=== PATIENT | male | born 1940 | race Caucasian/White ===

== ENCOUNTER 2016-07-20 11:53 | Outpatient (CLI) | END 2016-07-20 11:54 | disposition home or self-care (01) ==

== ENCOUNTER 2016-09-28 07:52 | Outpatient (CLI) | payer MEDICARE, OTHER | END 2016-09-28 07:53 | disposition home or self-care (01) | DX: I25.5 Ischemic cardiomyopathy (principal) ==

== ENCOUNTER 2016-10-31 16:00 | Emergency (ER) | payer MEDICARE, OTHER | END 2016-10-31 18:17 | disposition home or self-care (01) | DX: S02.2XXA Fracture of nasal bones, initial encounter for closed fracture (principal); S01.21XA Laceration without foreign body of nose, initial encounter; S00.83XA Contusion of other part of head, initial encounter; S00.81XA Abrasion of other part of head, initial encounter; W01.0XXA Fall on same level from slipping, tripping and stumbling without subsequent striking against object, initial encounter; I10 Essential (primary) hypertension; I25.2 Old myocardial infarction; Z79.01 Long term (current) use of anticoagulants; N40.0 Benign prostatic hyperplasia without lower urinary tract symptoms; E78.00 Pure hypercholesterolemia, unspecified; I25.10 Atherosclerotic heart disease of native coronary artery without angina pectoris; E11.9 Type 2 diabetes mellitus without complications ==

== ENCOUNTER 2016-11-02 14:37 | Outpatient (CLI) | payer MEDICARE, OTHER | END 2016-11-02 14:38 | disposition home or self-care (01) | DX: D64.9 Anemia, unspecified (principal); E11.51 Type 2 diabetes mellitus with diabetic peripheral angiopathy without gangrene; Z79.899 Other long term (current) drug therapy; E78.00 Pure hypercholesterolemia, unspecified ==

== ENCOUNTER 2016-12-04 15:43 | Outpatient (CLI) | payer MEDICARE, OTHER | END 2016-12-04 15:44 | disposition critical access hospital (66) | LOC: EMS 15:43 | PROVIDERS: ATTEND Surgery | DX: S01.81XA Laceration without foreign body of other part of head, initial encounter (principal); R41.0 Disorientation, unspecified; W18.30XA Fall on same level, unspecified, initial encounter; Y92.009 Unspecified place in unspecified non-institutional (private) residence as the place of occurrence of the external cause | CPT/HCPCS: A0425; A0429 ==

== ENCOUNTER 2016-12-04 15:54 | Emergency (ER) | payer MEDICARE, OTHER ==
[2016-12-04] MEDS ORDERED: TETANUS/DIPHTHERIA/PERTUSSIS 0.5 ML SYRINGE IM ONE ×2 (16:09→16:12)
== END 2016-12-04 17:44 | disposition home or self-care (01) ==
DX: S06.0X0A Concussion without loss of consciousness, initial encounter (principal); S00.81XA Abrasion of other part of head, initial encounter; W01.10XA Fall on same level from slipping, tripping and stumbling with subsequent striking against unspecified object, initial encounter; Y93.01 Activity, walking, marching and hiking; Y92.009 Unspecified place in unspecified non-institutional (private) residence as the place of occurrence of the external cause; Z23 Encounter for immunization; I48.91 Unspecified atrial fibrillation; Z79.01 Long term (current) use of anticoagulants; Z79.82 Long term (current) use of aspirin; I10 Essential (primary) hypertension; E11.9 Type 2 diabetes mellitus without complications; Z79.84 Long term (current) use of oral hypoglycemic drugs

== ENCOUNTER 2016-12-06 13:57 | Outpatient (CLI) | payer MEDICARE, OTHER ==
[2016-12-06 18:58] LABS: BASOPHILS # (AUTO) 0.1 10^3/uL (0.0-0.1); BASOPHILS % (AUTO) 0.9 %; EOSINOPHILS # (AUTO) 0.3 10^3/uL (0.0-0.7); EOSINOPHILS % (AUTO) 3.3 %; HCT - HEMATOCRIT 34.6 % (42.0-52.0); HGB - HEMOGLOBIN 10.8 g/dL (14.0-18.0); LYMPHOCYTES # (AUTO) 1.2 10^3/uL (1.5-3.5); LYMPHOCYTES % (AUTO) 12.1 %; MEAN CORPUSCULAR HEMOGLOBIN 27.9 pg (27.0-31.0); MEAN CORPUSCULAR HGB CONC 31.2 g/dL (32.0-36.0); MEAN CORPUSCULAR VOLUME 89.5 fL (80.0-94.0); MEAN PLATELET VOLUME 9.3 fL (7.4-11.4); MONOCYTES # (AUTO) 1.1 10^3/uL (0.0-1.0); MONOCYTES % (AUTO) 10.5 %; NEUTROPHILS # (AUTO) 7.4 10^3/uL (1.5-6.6); NEUTROPHILS % (AUTO) 73.2 %; NUCLEATED RED BLOOD CELLS AUTO 0.1 /100WBC; RED BLOOD COUNT 3.87 10^6/uL (4.70-6.10); RED CELL DISTRIBUTION WIDTH 17.3 % (12.0-15.0); UNCORRECTED WHITE BLOOD COUNT 10.1 x10^3/uL; WHITE BLOOD COUNT 10.1 x10^3/uL (4.8-10.8)
[2016-12-06 19:11] LABS: ALBUMIN/GLOBULIN RATIO 0.8 (1.0-2.2); BILIRUBIN,TOTAL 0.6 mg/dL (0.2-1.0); CALCIUM 8.9 mg/dL (8.5-10.3); CREATININE 1.1 mg/dL (0.6-1.2); POTASSIUM 4.8 mmol/L (3.5-5.0); TOTAL PROTEIN 7.7 g/dL (6.7-8.2)
[2016-12-06 19:15] LABS: HEMOGLOBIN A1C 0.5 g/dL
== END 2016-12-06 13:58 | disposition home or self-care (01) ==
LOC: LAB.WCP 13:57
PROVIDERS: ATTEND Family Medicine
DX: E11.51 Type 2 diabetes mellitus with diabetic peripheral angiopathy without gangrene (principal); D64.9 Anemia, unspecified; R29.6 Repeated falls
CPT/HCPCS: 36415; 80053; 83036; 85025

== ENCOUNTER 2017-01-12 10:12 | Outpatient (CLI) | payer MEDICARE, OTHER ==
[2017-01-12 13:46] LABS: BASOPHILS # (AUTO) 0.1 10^3/uL (0.0-0.1); BASOPHILS % (AUTO) 0.6 %; EOSINOPHILS # (AUTO) 0.4 10^3/uL (0.0-0.7); EOSINOPHILS % (AUTO) 4.7 %; HCT - HEMATOCRIT 31.7 % (42.0-52.0); HGB - HEMOGLOBIN 10.4 g/dL (14.0-18.0); LYMPHOCYTES % (AUTO) 10.6 %; MEAN CORPUSCULAR HEMOGLOBIN 28.9 pg (27.0-31.0); MEAN CORPUSCULAR HGB CONC 32.7 g/dL (32.0-36.0); MEAN CORPUSCULAR VOLUME 88.3 fL (80.0-94.0); MEAN PLATELET VOLUME 8.7 fL (7.4-11.4); MONOCYTES # (AUTO) 0.9 10^3/uL (0.0-1.0); MONOCYTES % (AUTO) 9.5 %; NEUTROPHILS # (AUTO) 6.9 10^3/uL (1.5-6.6); NEUTROPHILS % (AUTO) 74.6 %; RED BLOOD COUNT 3.59 10^6/uL (4.70-6.10); RED CELL DISTRIBUTION WIDTH 16.5 % (12.0-15.0); UNCORRECTED WHITE BLOOD COUNT 9.3 x10^3/uL; WHITE BLOOD COUNT 9.3 x10^3/uL (4.8-10.8)
[2017-01-12 14:02] LABS: IRON 42 ug/dL (45-182); TOTAL IRON BINDING CAPACITY 259 ug/dL (250-450); TRANSFERRIN 185 mg/dL (180-329)
== END 2017-01-12 10:13 | disposition home or self-care (01) ==
LOC: LAB.WCP 10:12
PROVIDERS: ATTEND Physician Assistant Medical
DX: D64.9 Anemia, unspecified (principal)
CPT/HCPCS: 36415; 82728; 83540; 84466; 85025

== ENCOUNTER 2017-01-25 10:31 | Outpatient (CLI) | payer MEDICARE, OTHER ==
--- NOTE | 2017-01-25 23:58 | CONSULTATION NOTE ---
Palliative Care Consultation - Referral Referring Provider: Marta Borrego PA-C Time of Visit: [id number] Referral setting: [facility] [place]erral Reason: Weight loss - Information Sources Records Reviewed: Old records reviewed History obtained from: Patient Exam limitations: No limitations - History of Present Illness Brief History of Present Illness: This is a 76 year old very pleasant gentleman presenting today with significant weight loss, most likely multifactorial in origin, and concern related ongoing failure to thrive. His most prominent barrier to intake has been his hiatal hernia, known to be 10 cm paraesophageal on EGD 02/28. He reports early satiety, and "limits amount I can hold". His weight loss has been accompanied by profound fatigue, decreased activity and perceived decrease quality of life. 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 He has had multiple falls, some from carelessness resulting in rib fractures, and one appears may have been from hypoxia as did not have o2 on and desats with activity, which had walked mailbox. Holter monitoring recently without significant findings. His risk for falls is heightened with his weakness, poor activity tolerance, and breathlessness and on coumadin therapy with already on subdural hematoma in 2015. Patient has moderate insight to the seriousness of his condition, but has not done any advanced care planning or explored goals of care. Medical/Surgical History - Past Medical History Cardiovascular: reports: Congestive heart failure, Hypertension, High cholesterol, Coronary artery disease, DC (reports poor functioning with mural clot, why on coumadine) Respiratory: reports: Shortness of breath, Other (pulmonary fibrosis attributed to GERD secondary to hiatal hernia "size of soft ball") Neuro: reports: Head injury (subdural hematoma with stay at [facility]), Other (syncopal episode) Endocrine/Autoimmune: reports: Type 2 diabetes GI: reports: GERD, Hiatal hernia : reports: Benign prostate hypertrophy, Renal insuffiency HEENT: denies: Chronic hearing loss Psych: denies: Depression, Anxiety Musculoskeletal: reports: Osteoarthritis (Fairly severe in right shoulder), Fatigue Derm: reports: None MRSA Hx?: No - Past Surgical History General: reports: Cholecystectomy Cardiovascular: reports: Coronary stent - Substance History Use: Uses substance without health or social issues: Alcohol (occasional wine/ beer) Social History - Living Situation Living arrangement: At home Living Situation: With spouse/s.o. (spouse in good health, have been 54 years.) Support System: Has four children, closest in [place]. and he enjoy good relationship. He has spiritual community at [employer]. Family History - Family History Family History: Mother: Alzheimer's Disease (Dementia age 98), Father: , Sister: Alive and Well, Brother: Alive and Well Medications/Allergies - Medications Home Medications: Ambulatory Orders Medication Instructions Recorded Confirmed Aspirin [Aspir 81] 81 mg PO DAILY 07/15/15 01/26/17 Carvedilol [Coreg] 6.25 mg PO BID 07/15/15 01/26/17 Simvastatin [Zocor] 20 mg PO DAILY 07/15/15 01/26/17 Warfarin [Coumadin] 5 mg PO DAILY 07/15/15 01/26/17 metFORMIN [Glucophage] 500 mg PO BID 07/15/15 01/26/17 Albuterol Sulfate [Proair Hfa 2 puffs INH Q4HR PRN 01/26/17 01/26/17 Inhaler] Cyanocobalamin (Vitamin B-12) 1 tab PO DAILY 01/26/17 01/26/17 [Vitamin B-12] Ferrous Sulfate 1 tab PO BID 01/26/17 01/26/17 Fluticasone 110 Mcg [Flovent] 2 inh INH BID 01/26/17 01/26/17 Furosemide 10 mg PO DAILY 01/26/17 01/26/17 Lisinopril 1 tab PO BID 01/26/17 01/26/17 Multivitamin [Multiple Vitamins] 1 tab PO DAILY 01/26/17 01/26/17 Omeprazole [Omeprazole] 1 tab PO BID 01/26/17 01/26/17 Sitagliptin Phosphate [Januvia] 1 tab PO DAILY 01/26/17 01/26/17 Umeclidinium [place] [Incruse 1 inh INH DAILY 01/26/17 01/26/17 Ellipta] metFORMIN [Glucophage] 1.5 tab PO QDDINNER 01/26/17 01/26/17 - Allergies Allergies/Adverse Reactions: Allergies Allergy/AdvReac Type Severity Reaction Status Date / Time No Known Drug Allergies Allergy Verified 01/26/17 00:07 Review of Systems - Constitutional Constitutional: reports: Fatigue, Weakness, Night sweats (reports at least a couple of times a week), Weight loss. denies: Chills - Eyes Eyes: reports: Corrective lenses. denies: Blurred vision, Vision loss - Ears, Nose & Throat Ears, Nose & Throat: reports: Hearing loss (mild) - Cardiovascular Cariovascular: reports: Irregular heart rate (recent holter monitor without much to reveal), Syncope, Exertional dyspnea, Decr. exercise tolerance, Orthopnea. denies: Palpitations, Chest pain - Respiratory Respiratory: reports: SOB at rest, SOB with exertion, Other (hypoxia with activity, oxygen now continously, though chose not to bring tanks as too difficult, wants portable unit) - Gastrointestinal Gastrointestinal: reports: Black stools (attributes to iron), Bloating (early satiety, hiatel hernia limits amount can eat). denies: Abdominal pain, Nausea, Reflux/heartburn Physical Examination - Vital Signs Temperature: 36.7 C Pulse Rate: 85 Respiratory Rate: 24 Blood Pressure: 119/55 - Physical Exam General Appearance: positive: Mild distress (with breathlessness, had not worn oxygen in) Eyes Bilateral: positive: Normal inspection, PERRL, EOMI, No lid inflammation ENT: positive: ENT inspection nml Neck: positive: No JVD, Trachea midline Respiratory: positive: Other (patient with dry crackles end of inspiration). negative: Wheezes, Rales, Rhonchi (oxygen sats room air at rest 95%, with ambulation of less than 30 feet becomes quite breathless and drops to 88%, reports oxygen at 2 liters at home, has been trying to get portable concentrator because of his weakness unable to "haul" tanks around. Reviewed saftey concerns related to this.) Cardiovascular: positive: Irregularly irregular Abdomen: positive: Nml bowel sounds, Other (concave, nontender, no masses appreciated exam limited as in chair) Skin: positive: Pallor, Dryness Extremities: positive: No pedal edema, Other (limited range of motion of right shoulder, tender to palpation) Neurologic/Psychiatric: positive: Oriented x3, Mood/affect nml Palliative Care - POLST Patient has POLST: No Pain: Pain unchanged, Location (right shoulder, rib pain from fall resolved), Severity (moderate, exacerbated with movement. not interested in PT/OT at this time.) Drowsiness: None Nausea: None Anxiety: None Dyspnea: Moderate (4-6) (worsened with activity, laying flat. oxygen helps) Anorexia: None (reports he is hungery when he goes to eat, the problem is early satiety) Insomnia: Sleeps well Constipation: No Feelings of wellbeing/Perceived Quality of Life: Worsening Performance Status: Able to attend to ADLs, fatigue is overwhelming at times. Limited by dyspnea, needs frequent rest periods. - Palliative Care Discussion: Patient has not done advanced directives, would chose his , then sister as she lives close, then daughter. Will have complete DPOA. Patient somewhat pragmatic, recognizes weight loss of concern and may be impacting prognosis, reports more anxious to have him look into it more, he attributes it so hernia but aware could be something else. Has had colonscopy with polyps in past. Introduced the concept of defining goals now, and for EOL. Patient would like to be more active, is limited by his dypnea (access to portable oxygen factor also), severe fatigue, and progressive weakness. Reviewed the POLST and the role, given 5 wishes and Conversation Project to use in discussion with , and in agreement she should accompany him for further decisions. His short term goal would be to gain 5 pounds, increase activity, and no further falls. Results - Lab Results Lab results reviewed: Yes Lab and Imaging Results: Patient is anemic, currently on iron. Hemoglobin 10.8; Hct 34.6 improved from october to november. Impression and Recommendations - Palliative Care Impression: This is a linda 76 year old gentlemen with concerning weight loss, fatigue, and presenting with failure to thrive. Has several concerning risk factors for falls and on coumadin. Patient has some understanding of seriousness of condition but has not explored or further considered consequences of what might be trajectory or goals if continued to decline. Recommendations/Counseling Done: 1. Weight loss multifactorial in origin. Patient wanting to explore goal of gaining 5 pounds over next 4-6 weeks. Counseling for strategies of added calories, small frequent meals, and use of supplements at least BID. Does not need appetite stimulant, though has wine at dinner at times, red wine can help on some occasions. Patient also has taste changes, no s/s candidiasis, on multiple medications could be contributing. At risk of underlying malignancy, at this time weighing benefits and burdens of further evaluation recognizing already limited surgical candidate with hernia. 2. Dyspnea. Instructed on use of oxygen AT ALL TIMES. Will follow up with Michele about portable concentrator, patient unable with current weight loss/ weakness and right shoulder pain to use tanks without great difficulty. Reviewed pacing activities. 3. Syncope. Holter monitor completed, to see flight instructor in next couple of weeks. Inst. to take b/p twice a day and bring log to visit, may be able further decrease medications with weight loss. In exploring last episode, may also have been due to hypoxia reiterated need to wear o2. 4. History of falls. patient being more careful, explored considering PT for strengthening will consider. Encouraged to ambulate short distances on a regular basis. 5Advanced Care Planning. patient with multiple risk factors and failure to thrive, does not currently meet hospice criteria as far as goals and no defined terminal condition at this time. Introduced patient to advanced care planning, goals of care and will meet with next time. Thank you Marta Carmona PA-C for asking the palliative care consult service to be involved in the care of your patient, I will follow along trajectory and focus on defining goals of care and addressing current concerns and short term goals of patient.. Time Spent: 60 minutes with greater than 50% done in counseling for weight loss, management of dyspnea, and advanced care planning and coordination of care , will follow up with Michele on portable concentrator.
== END 2017-01-25 10:32 | disposition home or self-care (01) ==
LOC: PC 10:31
PROVIDERS: ATTEND Nurse Practitioner Adult Health
DX: Z51.5 Encounter for palliative care (principal); R63.4 Abnormal weight loss; R06.00 Dyspnea, unspecified; Z91.19 Patient's noncompliance with other medical treatment and regimen; R55 Syncope and collapse; Z91.81 History of falling; R62.7 Adult failure to thrive; K44.9 Diaphragmatic hernia without obstruction or gangrene; R68.81 Early satiety; R53.83 Other fatigue; J84.10 Pulmonary fibrosis, unspecified; Z99.81 Dependence on supplemental oxygen; I25.2 Old myocardial infarction; R53.1 Weakness; Z79.01 Long term (current) use of anticoagulants; I50.9 Heart failure, unspecified; I10 Essential (primary) hypertension; E78.00 Pure hypercholesterolemia, unspecified; I25.10 Atherosclerotic heart disease of native coronary artery without angina pectoris; E11.9 Type 2 diabetes mellitus without complications; K21.9 Gastro-esophageal reflux disease without esophagitis; N40.0 Benign prostatic hyperplasia without lower urinary tract symptoms; N28.9 Disorder of kidney and ureter, unspecified; M19.011 Primary osteoarthritis, right shoulder; Z95.5 Presence of coronary angioplasty implant and graft; Z79.82 Long term (current) use of aspirin; Z79.84 Long term (current) use of oral hypoglycemic drugs; Z79.51 Long term (current) use of inhaled steroids; R61 Generalized hyperhidrosis; H91.90 Unspecified hearing loss, unspecified ear; D64.9 Anemia, unspecified
CPT/HCPCS: 99205

== ENCOUNTER 2017-03-01 13:48 | Outpatient (CLI) | payer MEDICARE, OTHER ==
--- NOTE | 2017-03-01 21:47 | PROVIDER PROGRESS NOTE ---
Palliative Care Follow Up - Referral Referring Provider: Marta Borrego PA-C Time of Visit: [id number] Referral setting: [facility] [place] Referral Reason: Goals of Care - Information Sources Records Reviewed: Old records reviewed History obtained from: Patient Exam limitations: No limitations - History of Present Illness Update Brief HPI Update: This 77 year old gentleman with advanced interstitial fibrosis, recently received his portable concentrator this week and feel it has made a substantial difference in his quality of life with better improvement of his dyspnea, activity tolerance, and freedom to leave the home. He does not feel his baseline dyspnea has worsened. He does have an intermittent cough, productive occasionally of sputum, reports yellow/brown and clears through day. He has been very consistent in his approach and attempts to gain weight, his still has early satiety and discomfort with eating, but in reviewing his intake and calories, use of supplements he has adequate calories. He has continued to loose a couple of more pounds, and has not resulted in any weight gain. Appears hydrated and less gaunt, but still cachetic. He reports he is hungery when he goes to eat, so pharmacotherapeutic approaches most likely would not improve his intake at this time. He reports his weight at home is 120 on his scale. He was 128 at PCP 02/23 and 126.8 at [facility] [place] today. The focus of today's visit is in follow up on weight, as well as address goals of care and complete POLST form. He forgot he was going to bring his , but reports they did talk about it with the tools/forms I provided. Social History - Living Situation Living arrangement: At home Living Situation: With spouse/s.o. (Reports his has health problems as well and is of concern he admits today) Support System: with health problems Medications/Allergies - Medications Home Medications: Ambulatory Orders Medication Instructions Recorded Confirmed Aspirin [Aspir 81] 81 mg PO DAILY 07/15/15 01/26/17 Carvedilol [Coreg] 6.25 mg PO BID 07/15/15 01/26/17 Simvastatin [Zocor] 20 mg PO DAILY 07/15/15 01/26/17 Warfarin [Coumadin] 5 mg PO DAILY 07/15/15 01/26/17 metFORMIN [Glucophage] 500 mg PO BID 07/15/15 01/26/17 Albuterol Sulfate [Proair Hfa 2 puffs INH Q4HR PRN 01/26/17 01/26/17 Inhaler] Cyanocobalamin (Vitamin B-12) 1 tab PO DAILY 01/26/17 01/26/17 [Vitamin B-12] Ferrous Sulfate 1 tab PO BID 01/26/17 01/26/17 Fluticasone 110 Mcg [Flovent] 2 inh INH BID 01/26/17 01/26/17 Furosemide 10 mg PO DAILY 01/26/17 01/26/17 Lisinopril 1 tab PO BID 01/26/17 01/26/17 Multivitamin [Multiple Vitamins] 1 tab PO DAILY 01/26/17 01/26/17 Omeprazole [Omeprazole] 1 tab PO BID 01/26/17 01/26/17 Sitagliptin Phosphate [Januvia] 1 tab PO DAILY 01/26/17 01/26/17 Umeclidinium [place] [Incruse 1 inh INH DAILY 01/26/17 01/26/17 Ellipta] metFORMIN [Glucophage] 1.5 tab PO QDDINNER 01/26/17 01/26/17 - Allergies Allergies/Adverse Reactions: Allergies Allergy/AdvReac Type Severity Reaction Status Date / Time No Known Drug Allergies Allergy Verified 01/26/17 00:07 Review of Systems - Constitutional Constitutional: reports: Fatigue, Weight loss (120 pounds) - Eyes Eyes: reports: Vision loss, Corrective lenses - Ears, Nose & Throat Ears, Nose & Throat: reports: Hearing loss - Cardiovascular Cariovascular: reports: Exertional dyspnea, Decr. exercise tolerance, Orthopnea. denies: Chest pain - Respiratory Respiratory: reports: Cough, Sputum production (occasional yellow with brown streaks), Wheezing, Orthopnea, SOB at rest, SOB with exertion, Other (feels better on 24 hour on oxygen at 2 liters) - Gastrointestinal Gastrointestinal: reports: Constipation, Reflux/heartburn (some intermittent pain with too much food). denies: Bloody stools, Poor appetite (reports early satiety) - Genitourinary Genitourinary: reports: Urgency (some) - Musculoskeletal Musculoskeletal: reports: Stiffness, Muscle weakness - Integumentary Integumentary: reports: Dryness - Neurological Neurological: reports: General weakness - Psychiatric Psychiatric: reports: Anxiety - Endocrine Endocrine: denies: Intolerance to cold, Intolerance to heat - Hematologic/Lymphatic Hematologic/Lymphatic: denies: Recurrent infections - All Other Systems All Other Systems: reports: Reviewed and negative Physical Examination - Vital Signs Pulse Rate: 92 Respiratory Rate: 20 Blood Pressure: 108/64 - Physical Exam General Appearance: positive: No acute distress Eyes Bilateral: positive: Normal inspection, Conjunctivae nml ENT: positive: No signs of dehydration Neck: positive: No JVD, Trachea midline Respiratory: positive: Other (Patient with dry crackles at end of inspiration consistent with fibrosis) Cardiovascular: positive: Irregularly irregular Abdomen: positive: Nml bowel sounds, No distention, Other (tender upper abdomen/ sternal area) Extremities: positive: No pedal edema, Other (limited range of motion shoulders) Neurologic/Psychiatric: positive: Oriented x3, Mood/affect nml Palliative Care - POLST Patient has POLST: Yes POLST Status: DNR, Limited Interventions (Determine use or limitiations of antibiotics when infection occurs, with comfort as the goal/No medically assisted nutrition by tube) Pain: Pain unchanged (right shoulder, occasion APAP) Drowsiness: None Nausea: None Anxiety: None Dyspnea: Moderate (4-6) Anorexia: None Insomnia: Sleeps well Constipation: No Feelings of wellbeing/Perceived Quality of Life: No change Performance Status: Patient independent in ADLs, limited some by fatigue but mostly dyspnea. Attempts to pace activities - Palliative Care Discussion: Surrogate decision maker- Mario Jacob [phone], is thinking of having daughter as second, has not completed paperwork. Patient want to be independent as possible, for as long as possible. Very discouraged is not gaining, but continuing to lose weight. Assumed some related to hiatal hernia, but of concern is history of positive polyps, does not recall last colonoscopy, but given is frail cardiac and pulmonary status most likely not a candidate for invasive test and/or surgery if had positive findings. In reviewing his concerns , it is about dying before his , experiencing more dependence, and having pain and/or suffering. At the conclusion of our conversation, he would be interested in pursuing a noninvasive look at perhaps what might be going on in his decline of health, recognizing we may find nothing/ and or not be able to intervene. Agreed I would follow up with his PCP. We did though continue and completed the POLST, he is pragmatic, and does want reversible conditions addressed but no prolonged suffering and loss of independence. Impression and Recommendations - Palliative Care Impression: This is a 77 year old gentleman with advanced pulmonary fibrosis and ongoing struggles with weight loss. Patient with improved quality of life with new portable concentrator, remains concerned regarding underlying frail health status, and completed POLST today as part of advanced care planning. Recommendations/Counseling Done: 1. Weight loss, most likely multifactorial in origin. Counseling, reviewed current strategies, calorie count has improved as well as hydration status. Did get referral for high pressure firer, has not had appointment yet. 2. Dyspnea, improved with use of 24 hour oxygen. Does not feel severe enough needing other support. Counseling for increasing activity as able, fatigues easily. 3. Advanced care planning. Originally had declined aggressive work up based on his underlying conditions and concern if able to actually tolerate interventions /work up. In review of goals, completing the POLST, and discouragement of some ongoing decline would like to purse at least first step. *03/02 Call to PCP with patients concerns/goals, will order CT of abdomen/pelvis as first step, she will schedule to see him after. Discussed current palliative care support, will see awaiting pending tests for next visit and follow up as needed. Thank you Marta Borrego PA-C for having the palliative care consult team involved in your patient, will continue to follow on as needed basis. Time Spent: 60 minutes with greater than 50% spent in counseling for symptom management of weight loss/dyspnea and advanced care planning and coordination of care with PCP
== END 2017-03-01 13:49 | disposition home or self-care (01) ==
LOC: PC 13:48
PROVIDERS: ATTEND Nurse Practitioner Adult Health
DX: Z51.5 Encounter for palliative care (principal); J84.10 Pulmonary fibrosis, unspecified; R63.4 Abnormal weight loss; R06.00 Dyspnea, unspecified; R05 Cough; R68.81 Early satiety; Z79.82 Long term (current) use of aspirin; Z79.4 Long term (current) use of insulin; Z79.84 Long term (current) use of oral hypoglycemic drugs; R53.83 Other fatigue; K59.00 Constipation, unspecified; R12 Heartburn; R39.15 Urgency of urination; Z66 Do not resuscitate; K44.9 Diaphragmatic hernia without obstruction or gangrene
CPT/HCPCS: 99215

== ENCOUNTER 2017-03-06 07:40 | Outpatient (CLI) | payer MEDICARE, OTHER ==
[2017-03-06 08:20] LABS: CALCIUM 8.7 mg/dL (8.5-10.3); CREATININE 0.9 mg/dL (0.6-1.2); POTASSIUM 4.6 mmol/L (3.5-5.0)
[2017-03-06] MEDS ORDERED: IOPAMIDOL-300 100 ML VIAL IVP ONE (10:31)
[2017-03-06] MEDS ORDERED: IOPAMIDOL-300 50 ML VIAL PO ONE (10:31)
--- NOTE | 2017-03-06 13:46 | CT Report ---
CT ABDOMEN AND PELVIS WITH CONTRAST: 03/06/2017 CLINICAL INDICATION: Weight loss. TECHNIQUE: Axial CT images of the abdomen and pelvis were obtained with 100 mL Isovue-300 intravenou sly as well as oral contrast. No previous CT is available for comparison. FINDINGS: Limited evaluation of the lung bases demonstrates pulmonary fibrosis. There is a large hi atal hernia present. ABDOMEN: Patient is status post cholecystectomy. The liver, spleen, pancreas, kidneys and adrenal g lands appear unremarkable. No bowel dilatation, free gas, or free fluid is present. No abdominal ad enopathy is seen. PELVIS: Sigmoid diverticulosis is present, without CT evidence of diverticulitis. There appears to be irregularity of the right posterolateral urinary bladder wall. Consider correlation with cystosco py. No pelvic adenopathy or free fluid is seen. Osseous structures demonstrate degenerative changes. IMPRESSION: 1. POSSIBLE IRREGULARITY OF THE RIGHT POSTEROLATERAL URINARY BLADDER WALL. CONSIDER CORRELATION WIT H CYSTOSCOPY. 2. LARGE HIATAL HERNIA. 3. PULMONARY FIBROSIS. In accordance with CT protocol optimization, one or more of the following dose reduction techniques w ere utilized for this exam: automated exposure control, adjustment of mA and/or KV based on patient size, or use of iterative reconstructive technique. JOB #: [id number] EXT JOB #:[id number]
== END 2017-03-06 07:41 | disposition home or self-care (01) ==
LOC: LAB 07:40
PROVIDERS: ATTEND Physician Assistant Medical
DX: K44.9 Diaphragmatic hernia without obstruction or gangrene (principal); J84.10 Pulmonary fibrosis, unspecified; Z51.81 Encounter for therapeutic drug level monitoring; Z79.899 Other long term (current) drug therapy
CPT/HCPCS: 36415; 74177; 80048; Q9967

== ENCOUNTER 2017-04-17 14:32 | Outpatient (CLI) | payer MEDICARE, OTHER ==
[2017-04-17 12:49] LABS: BASOPHILS # (AUTO) 0.1 10^3/uL (0.0-0.1); BASOPHILS % (AUTO) 0.7 %; EOSINOPHILS # (AUTO) 0.5 10^3/uL (0.0-0.7); EOSINOPHILS % (AUTO) 5.4 %; HCT - HEMATOCRIT 33.7 % (42.0-52.0); LYMPHOCYTES # (AUTO) 1.1 10^3/uL (1.5-3.5); MEAN CORPUSCULAR HEMOGLOBIN 29.8 pg (27.0-31.0); MEAN CORPUSCULAR HGB CONC 32.8 g/dL (32.0-36.0); MEAN PLATELET VOLUME 8.9 fL (7.4-11.4); MONOCYTES # (AUTO) 0.9 10^3/uL (0.0-1.0); MONOCYTES % (AUTO) 10.6 %; NEUTROPHILS % (AUTO) 70.3 %; RED CELL DISTRIBUTION WIDTH 14.6 % (12.0-15.0); UNCORRECTED WHITE BLOOD COUNT 8.5 x10^3/uL; WHITE BLOOD COUNT 8.5 x10^3/uL (4.8-10.8)
[2017-04-17 13:04] LABS: ALBUMIN/GLOBULIN RATIO 0.7 (1.0-2.2); BILIRUBIN,TOTAL 0.6 mg/dL (0.2-1.0); CREATININE 0.9 mg/dL (0.6-1.2); POTASSIUM 4.6 mmol/L (3.5-5.0); TOTAL PROTEIN 7.8 g/dL (6.7-8.2)
== END 2017-04-17 14:33 | disposition home or self-care (01) ==
LOC: LAB.WCP 14:32
PROVIDERS: ATTEND Physician Assistant Medical
DX: N18.9 Chronic kidney disease, unspecified (principal); R79.9 Abnormal finding of blood chemistry, unspecified; D64.9 Anemia, unspecified
CPT/HCPCS: 36415; 80053; 85025

== ENCOUNTER 2017-07-05 11:13 | Outpatient (CLI) | payer MEDICARE, OTHER | END 2017-07-05 11:14 | disposition home or self-care (01) | LOC: DI 11:13 | PROVIDERS: ATTEND Physician Assistant Medical | DX: I77.1 Stricture of artery (principal) | CPT/HCPCS: 93306 ==

== ENCOUNTER 2017-10-08 08:00 | Outpatient (CLI) | payer MEDICARE, OTHER ==
[2017-10-08 19:36] LABS: BASOPHILS # (AUTO) 0.1 10^3/uL (0.0-0.1); BASOPHILS % (AUTO) 0.5 %; EOSINOPHILS # (AUTO) 0.2 10^3/uL (0.0-0.7); EOSINOPHILS % (AUTO) 1.9 %; HGB - HEMOGLOBIN 11.3 g/dL (14.0-18.0); LYMPHOCYTES % (AUTO) 9.7 %; MEAN CORPUSCULAR HGB CONC 31.7 g/dL (32.0-36.0); MEAN CORPUSCULAR VOLUME 91.2 fL (80.0-94.0); MEAN PLATELET VOLUME 8.5 fL (7.4-11.4); MONOCYTES % (AUTO) 9.9 %; NEUTROPHILS # (AUTO) 7.8 10^3/uL (1.5-6.6); PLT - PLATELET COUNT 232 10^3/uL (130-450); RED CELL DISTRIBUTION WIDTH 14.9 % (12.0-15.0)
[2017-10-08 20:00] LABS: CALCIUM 8.8 mg/dL (8.5-10.3); CREATININE 0.8 mg/dL (0.6-1.2); HB2 TOTAL 12.2 g/dL; HEMOGLOBIN A1C 0.5 g/dL; HEMOGLOBIN A1C % 5.9 % (4.6-6.2)
== END 2017-10-08 08:01 | disposition home or self-care (01) ==
LOC: LAB.WCP 08:00
PROVIDERS: ATTEND Family Medicine
DX: N18.9 Chronic kidney disease, unspecified (principal); E11.51 Type 2 diabetes mellitus with diabetic peripheral angiopathy without gangrene; I50.9 Heart failure, unspecified; J84.10 Pulmonary fibrosis, unspecified; D64.9 Anemia, unspecified; I11.0 Hypertensive heart disease with heart failure; I25.10 Atherosclerotic heart disease of native coronary artery without angina pectoris
CPT/HCPCS: 36415; 80048; 82728; 83036; 83540; 84466; 85025

== ENCOUNTER 2018-02-03 10:07 | Outpatient (CLI) | payer MEDICARE, OTHER | END 2018-02-03 10:08 | disposition critical access hospital (66) | LOC: EMS 10:07 | PROVIDERS: ATTEND Surgery | DX: S09.90XA Unspecified injury of head, initial encounter (principal); R42 Dizziness and giddiness; M79.602 Pain in left arm; M79.601 Pain in right arm; W01.0XXA Fall on same level from slipping, tripping and stumbling without subsequent striking against object, initial encounter; Y93.01 Activity, walking, marching and hiking; Y92.481 Parking lot as the place of occurrence of the external cause | CPT/HCPCS: A0425; A0427 ==

== ENCOUNTER 2018-02-03 10:29 | Emergency (ER) | payer MEDICARE, OTHER ==
--- NOTE | 2018-02-03 11:53 | CT Report ---
Procedure Date: 02/03/2018 Accession Number: [id number] / [id number] Procedure: CT - Head W/O CPT Code: FULL RESULT: EXAM: CT HEAD EXAM DATE: 02/03/2018 11:35 AM. CLINICAL HISTORY: Fall forehead and occiput contusion headache. COMPARISON: 12/04/2016. TECHNIQUE: Multiaxial CT images were obtained from the foramen magnum to the vertex. Reformats: Sagittal and coronal. IV contrast: None. In accordance with CT protocol optimization, one or more of the following dose reduction techniques were utilized for this exam: automated exposure control, adjustment of mA and/or KV based on patient size, or use of iterative reconstructive technique. FINDINGS: Parenchyma: No intraparenchymal hemorrhage. No evidence of mass, midline shift, or CT findings of infarction. Mak-white differentiation is distinct. Extraaxial Spaces: Normal for age. No subdural or epidural collections identified. Ventricles: Normal in size and position. Sinuses and Orbits: Imaged paranasal sinuses, orbits, and mastoids show no significant abnormality. Bones: No evidence of fracture or calvarial defect. Other: Left frontal scalp swelling. IMPRESSION: No evidence of acute intracranial process. RADIA
--- NOTE | 2018-02-03 12:04 | ED Physician Documentation ---
PD HPI HEAD INJURY - Stated complaint Stated Complaint: FALL - Chief complaint Chief Complaint: Trauma Hd/Nk - History obtained from History obtained from: Patient, Family - History of Present Illness Mechanism of head injury: Fell Where head injury occurred: Street Timing - onset: Today Location of injury: Right, Front Quality of pain: Pain, Throbbing Associated symptoms: No: LOC, AMS, Amnesia, Nausea / vomiting, Neck pain, Paresthesias, Seizures, Ear drainage, Nasal drainage Symptoms improve with: Rest Symptoms worsen with: Palpation, Movement Contributing factors: Anticoagulated Similar symptoms before: Diagnosis (thin skin tears, subdural hematoma) Recently seen: Not recently seen - Additional information Additional information: 78-year-old male with advanced pulmonary fibrosis has tripped between 2 cars and fallen he has hit his head he has thin skin on the left forearm that is been torn. He did not have loss of consciousness with this he is on Coumadin. He does have a prior history of subdural hematoma. Review of Systems Constitutional: denies: Fever Eyes: denies: Decreased vision Ears: denies: Ear pain Nose: denies: Congestion Throat: denies: Sore throat Respiratory: reports: Dyspnea. denies: Cough GI: denies: Vomiting PD PAST MEDICAL HISTORY - Past Medical History Cardiovascular: Congestive heart failure, Hypertension, High cholesterol, Coronary artery disease, [place] Respiratory: Shortness of breath, Other Endocrine/Autoimmune: Type 2 diabetes GI: GERD, Hiatal hernia : Benign prostate hypertrophy, Renal insuffiency Musculoskeletal: Osteoarthritis, Fatigue Derm: None - Past Surgical History Past Surgical History: Yes General: Cholecystectomy Cardiovascular: Coronary stent - Present Medications Home Medications: Ambulatory Orders Medication Instructions Recorded Confirmed Aspirin [Aspir 81] 81 mg PO DAILY 07/15/15 01/26/17 Carvedilol [Coreg] 6.25 mg PO BID 07/15/15 01/26/17 Simvastatin [Zocor] 20 mg PO DAILY 07/15/15 01/26/17 Warfarin [Coumadin] 5 mg PO DAILY 07/15/15 01/26/17 metFORMIN [Glucophage] 500 mg PO BID 07/15/15 01/26/17 Albuterol Sulfate [Proair Hfa 2 puffs INH Q4HR PRN 01/26/17 01/26/17 Inhaler] Cyanocobalamin (Vitamin B-12) 1 tab PO DAILY 01/26/17 01/26/17 [Vitamin B-12] Ferrous Sulfate 1 tab PO BID 01/26/17 01/26/17 Fluticasone 110 Mcg [Flovent] 2 inh INH BID 01/26/17 01/26/17 Furosemide 10 mg PO DAILY 01/26/17 01/26/17 Lisinopril 1 tab PO BID 01/26/17 01/26/17 Multivitamin [Multiple Vitamins] 1 tab PO DAILY 01/26/17 01/26/17 Omeprazole [Omeprazole] 1 tab PO BID 01/26/17 01/26/17 Sitagliptin Phosphate [Januvia] 1 tab PO DAILY 01/26/17 01/26/17 Umeclidinium [place] [Incruse 1 inh INH DAILY 01/26/17 01/26/17 Ellipta] metFORMIN [Glucophage] 1.5 tab PO QDDINNER 01/26/17 01/26/17 - Allergies Allergies/Adverse Reactions: Allergies Allergy/AdvReac Type Severity Reaction Status Date / Time No Known Drug Allergies Allergy Verified 02/03/18 10:40 - Social History Does the pt smoke?: No Smoking Status: Never smoker Does the pt drink ETOH?: No Does the pt have substance abuse?: No - Immunizations Immunizations are current?: No Immunizations: TDAP >10years/unknown - POLST Patient has POLST: Yes PD ED PE NORMAL - Vitals Vital signs reviewed: Yes (normal ) - General General: Alert and oriented X 3, No acute distress, Well developed/nourished - HEENT HEENT: PERRL, EOMI, Other (There is an abrasion to the left forehead with a 2cm laceration to the central portion of a round 3cm abrasion. ) - Neck Neck: Supple, no meningeal sign, No bony TTP - Cardiac Cardiac: Other (irregularly irregular without murmer) - Respiratory Respiratory: No respiratory distress, Other (bibasilar crackles) - Back Back: No CVA TTP, No spinal TTP - Derm Derm: Normal color, No rash - Extremities Extremities: Other (There are multiple thin skin tears of the left dorsal forearm. 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 intact, No motor deficit, No sensory deficit, Normal speech Eye Opening: Spontaneous Motor: Obeys Commands Verbal: Oriented GCS Score: 15 - Psych Psych: Normal mood, Normal affect Results - Vitals Vitals: Vital Signs - 24 hr 02/03/18 02/03/18 02/03/18 10:34 12:31 13:41 Temperature 36.4 C L Heart Rate 73 81 79 Respiratory 18 24 16 Rate Blood Pressure 119/44 L 106/45 L 119/54 L O2 Saturation 99 98 98 Oxygen O2 Source Room air - Labs Labs: Laboratory Tests 02/03/18 10:39 PT 25.1 H INR 2.3 H - Rads (name of study) CT head without Radiology: Prelim report reviewed (Impression: No evidence of acute intracranial process.), EMP read indepedently, See rad report Procedures - Laceration (location) forearm Length in cm: 14 Wound type: Irregular, Flap, Superficial, Contaminated Neurovascular status: Sensory intact, Motor intact Anesthesia: OTH (viscous lidocaine) Wound Preparation: Irrigated copiously NS, Wound explored, To the base, Multiple flaps aligned Skin layer closure: Dermabond, Steri strips Other: Patient tolerated well, No complications, Neurovascular intact, Dressing applied, Tetanus UTD Complexity: Simple PD MEDICAL DECISION MAKING - ED course Complexity details: reviewed old records, reviewed results, re-evaluated patient , considered differential, d/w patient, d/w family ED course: 78-year-old male with advanced pulmonary fibrosis on Coumadin for atrial fibrillation has had a fall struck his head no loss of consciousness CT is without evidence of subdural and he has thin skin tears to his forearm and to his forehead he has an abrasion and laceration. The patient's wounds were attended to with cleaning debriding and reapplying the skin which is tacked down with tincture of benzoin Steri-Strips and Dermabond. Patient tolerates this well. - Sepsis Event Vital Signs: Vital Signs - 24 hr 02/03/18 02/03/18 02/03/18 10:34 12:31 13:41 Temperature 36.4 C L Heart Rate 73 81 79 Respiratory 18 24 16 Rate Blood Pressure 119/44 L 106/45 L 119/54 L O2 Saturation 99 98 98 Oxygen O2 Source Room air Departure - Departure Disposition: 01 Home, Self Care Clinical Impression: Skin tear Facial abrasion Qualifiers: Encounter type: initial encounter Qualified Code(s): S00.81XA - Abrasion of other part of head, initial encounter Condition: Stable Instructions: ED Laceration Ext Skin Glue, ED Laceration Ext Sutr Stap Tape, ED Avulsion Dermal Follow-Up: Mayo Neely MD [Primary Care Provider] - Discharge Date/Time: 02/03/18 14:00
[2018-02-03] MEDS: LIDOCAINE VISCOUS 2% 15 ML UDC MM STA (12:30)
[2018-02-03] MEDS: LIDOCAINE VISCOUS 2% 100 ML BOTTLE MM STA (12:30)
[2018-02-03 13:20] LABS: INR 2.3 (0.8-1.2); PT - PROTHROMBIN TIME 25.1 secs (9.9-12.6)
[2018-02-03 13:42] VITALS: BP 119/54
== END 2018-02-03 14:00 | disposition home or self-care (01) ==
LOC: EDUNIT# → ED 10:29
DX: S00.81XA Abrasion of other part of head, initial encounter (principal); S51.812A Laceration without foreign body of left forearm, initial encounter; I10 Essential (primary) hypertension; E11.9 Type 2 diabetes mellitus without complications; I48.91 Unspecified atrial fibrillation; Z79.82 Long term (current) use of aspirin; Z79.01 Long term (current) use of anticoagulants; Z79.84 Long term (current) use of oral hypoglycemic drugs; W01.10XA Fall on same level from slipping, tripping and stumbling with subsequent striking against unspecified object, initial encounter; Y93.01 Activity, walking, marching and hiking; Y92.481 Parking lot as the place of occurrence of the external cause
CPT/HCPCS: 12005; 70450; 85610; 99283

== ENCOUNTER 2018-05-12 12:52 | Outpatient (CLI) | payer MEDICARE, OTHER | END 2018-05-12 12:53 | disposition E | LOC: EMS 12:52 | PROVIDERS: ATTEND Surgery ==